=== PATIENT | female | born 1960 | race Caucasian/White ===

== ENCOUNTER 2020-06-19 08:35 | Day surgery (SDC) | payer MEDICARE, MEDICAID ==
--- NOTE | 2020-06-18 15:29 | NUR ---
ATTEMPTED TO CONFIRM PT APPT FOR TOMORROW. VOICEMAIL WAS NOT PT NAME, DID NOT LEAVE MESSAGE.
[~2020-06-19] VITALS: Ht 162.6 cm; Wt 51.8 kg
--- NOTE | ~2020-06-19 | HEMODYNAMI ---
PATIENT:LAVELL WALL MEDICAL RECORD: [id number] : 58 LOCATION:[facility] ADMISSION DATE: 06/19/20 Generatedon:113:55 Patient name: LAVELL WALL Patient #: [id number] SSN: : 1960 Date of study: 06/19/2020 Page: Of Hemodynamic Procedure Report Patient Data Patient Demographics Procedure consent was obtained First Name: LAVELL Gender: Female Last Name: MAE : 1960 Patient #: [id number] Age: 59 year(s) Race: Unknown Additional ID: [id number] Contact details [address]: [address] [place] [address] State: [place] City: [place] Zip code: [address] Past Medical History Allergies Allergen Reaction Date Comments Reported Morphine 06/19/2020 Erythromycin 06/19/2020 Admission Admission Data Admission Date: 06/19/2020 Admission Time: 8:35 Procedure Procedure Types Cath Procedure Peripheral Cath Diagnostic Procedure Abd/Extremity Extremities Bilat Lower Extremity Procedure Description Procedure Date Procedure Date: 06/19/2020 Procedure Start Time: 11:48 Procedure Staff Name Function Nelida Maurice RT Perioperative Manager Brooks Jane RT Scrub Дмитрий Tracey MD Additional personnel Gigi Romero MD Performing Physician Fidelia Caba RN Nurse Serena Cabrera RN Nurse Procedure Data Cath Procedure Fluoroscopy Diagnostic fluoroscopy Total fluoroscopy Time: 21 time: 21 min min Diagnostic fluoroscopy Total fluoroscopy dose: 251 dose: 251 mGy mGy Contrast Material Contrast Material Type Amount (ml) Isovue 300 160 Entry Location Entry Primary Successful Side Size Upsize Upsize Entry Closure Succes sful Closure Location (Fr) 1 (Fr) 2 (Fr) Remarks Device Remarks Femoral Exoseal artery Procedure Medications Medication Administration Route Dosage Heparin Flush Bag added to field 3 bags (1000units/500ml NS) Lidocaine 1% added to field 20 Refer to Anesthesia Notes for Sedation Medications Heparin Bolus I.V. 5000 units Radial Cocktail I.A. 1 syringe (Verapamil 2mg/Nitro 400mcg/Heparin 1500units) Nitroglycerin IC/IA I.A. 300 mcg Nitroglycerin IC/IA I.A. 300 mcg Heparin Bolus I.V. 1000 units Nitroglycerin IC/IA I.A. 300 mcg Hemodynamics Rest Pre Cath Intra NCS Post Cath Medications Time Medication Route Dose Verified Delivered Reason Notes Ef fectiveness by by 11:45:08 Heparin Flush added 3 bags Gigi Gigi used for Bag to Heather Romero MD procedure (1000units/500ml field BERTRAND NS) 11:45:21 Lidocaine 1% added 20ml Gigi Yu for local to vial Heather Romero MD anesthetic field BERTRAND 11:45:32 Refer to Gigi Yu Anesthesia Notes Heather Romero MD for Sedation MD Medications 12:07:08 Heparin Bolus I.V. 5000 Gigi Mistry Per units Rosales Romero RN physician 12:36:42 Radial Cocktail I.A. 1 Gigi Yu (Verapamil syringe Heather Romero MD 2mg/Nitro 400mcg/Hepari 12:50:36 Nitroglycerin I.A. 300 mcg Gigi Yu IC/IA Heather Romero MD MD 13:15:18 Nitroglycerin I.A. 300 mcg Gigi Yu used for IC/IA Heather Romero MD procedure 13:25:15 Heparin Bolus I.V. 1000 Gigi Yu Per units Heather Romero MD physician 13:37:06 Nitroglycerin I.A. 300 mcg Gigi Yu used for IC/IA Heather Romero MD procedure Procedure Log Time Note 11:10:18 Time tracking: Regular hours (M-F 7:00 - 5:00) 11:11:14 Plan of Care:Hemodynamics will remain stable., Cardiac rhythm will remain stable., Comfort level will be maintained., Respiratory function will remain adequate., Patient/ family verbilizes understanding of procedure., Procedure tolerated without complication., Recovers from procedure without complications.. 11:11:20 Patient received from Outpatients to IR Alert and oriented. Tansferred to table in Supine position. 11:11:23 Signed procedure consent form obtained from patient. 11:11:25 - 11:11:31 H&P Date Dictated: 06/19/2020 Within 30 days and on chart., H&P Addendum completed by physician on day of procedure. (MUST COMPLETE FOR ALL OUTPATIENTS). 11:11:33 Pre-procedure instructions explained to patient. 11:11:34 Pre-op teaching completed and patient verbalized understanding. 11:11:42 Family unavailable. 11:11:44 Patient NPO since Midnight. 11:12:37 Patient allergic to Morphine 11:12:45 Patient allergic to Erythromycin 11:13:42 Is the patient allergic to Iodine/contrast media? No. 11:13:45 Is patient on blood thinner?No 11:13:55 Patient diabetic? No. 11:13:59 - 11:14:00 ----Pre-sedation anethsthesia assessment.----see anesthesia notes for monitoring of patient during procedure 11:14:33 Use device set IR Diagnostic 11:15:36 Micropuncture VSI 4FR kit opened to sterile field. 11:15:37 DOUBLE ENDED GUIEDWIRE DOC 145CM (U67339) opened to sterile field. 11:15:38 TUBING Contrast Injection High Pressure (AMX107U) opened to sterile field. 11:15:39 SHEATH 5FR [place] (QIT874) opened to sterile field. 11:15:40 PEREIRA 260 wire (R91438) opened to sterile field. 11:15:41 Tegaderm 4 x 4 (1626W) opened to sterile field. 11:15:43 Sterile Angiographic Pack opened to sterile field. 11:15:44 Bag Decanter () opened to sterile field. 11:15:45 ACIST Manifold (21862) opened to sterile field. 11:15:46 ACIST Syringe (84404) opened to sterile field. 11:15:46 ACIST Hand Control (47449) opened to sterile field. 11:15:57 - 11:16:03 Pre procedure: right dorsailis pedis pulse Doppler 11:16:06 Pre procedure: left dorsailis pedis pulse Doppler 11:16:11 Pre procedure: right posterior tibial pulse Doppler 11:16:22 Pre procedure: left posterior tibial pulse Doppler 11:16:56 Right groin area was prepped with chlora-prep and draped in sterile fashion 11:17:02 Alarms reviewed by Layton Mulligan 11:17:08 - 11:17:33 2) 60-89 Mildly reduced kidney function, and other findings (as for stage 1) point to kidney disease. 11:38:50 Angiodynamics Omniflush 5Fr 65cm ([id number]) opened to sterile field. 11:38:52 GLIDE WIRE ANGLE 260cm (YO3700) opened to sterile field. 11:38:52 CXI SUPPORT .035 135 CM STR catheter (J76763) opened to sterile field. 11:38:53 GLIDE CATHETER 5FR ANGLED 65cm (CG507) opened to sterile field. 11:38:55 - 11:39:01 Fire Safety Assessment: A--An alcohol-based skin anteseptic being used preoperatively., C--Open oxygen or nitrous oxide is being used. 11:45:08 Heparin Flush Bag (1000units/500ml NS) 3 bags added to field was administered by Gigi Romero MD; used for procedure; Verbal order read back and verified. 11:45:21 Lidocaine 1% 20ml vial added to field was administered by Gigi Romero MD; for local anesthetic; Verbal order read back and verified. 11:45:32 Refer to Anesthesia Notes for Sedation Medications was administered by Gigi Romero MD; ; Verbal order read back and verified. 11:47:21 Physician arrived 11:47:22 Final Timeout: patient, procedure, and site verified with staff and physician. All members of the team are in agreement. 11:47:22 --------ALL STOP TIME OUT------ 11:48:03 Procedure started. 11:48:04 Full Disclosure recording started 11:48:08 Local anesthetic to right femoral artery with Lidocaine 1% by Gigi Romero MD.INITIAL ACCESS ONLY 11:49:12 AMPLATZ Super Stiff 75cm wire ([id number]) opened to sterile field. 12:02:58 SHEATH DESTINATION 6FR X 65CM (RSP01) opened to sterile field. 12:07:08 Heparin Bolus 5000 units I.V. was administered by Fidelia Caba RN; Per physician; Verbal order read back and verified. 12:23:14 GLIDE CATHETER 5FR STRAIGHT 100cm (CG506) opened to sterile field. 12:23:22 Tegaderm 6 x 8 (1628) opened to sterile field. 12:23:24 Tegaderm 6 x 8 (1628) opened to sterile field. 12:24:27 GUIDEWIRE V-18 CONTROL ([id number]) opened to sterile field. 12:36:42 Radial Cocktail (Verapamil 2mg/Nitro 400mcg/Heparin 1500units) 1 syring e I.A. was administered by Gigi Romero MD; ; Verbal order read back and verified. 12:42:18 CHOICE PT Extra Support J 300cm guide wire ([id number]) opened to steril e field. 12:43:24 INFLATOR BasixTOUCH (VR0205) opened to sterile field. 12:45:10 Inflate balloon Inflation number: 1 A NANOCROSS ELITE 3 X 100 ([id number]) was prepped and advanced across the Undefined1 , then inflated . 12:46:33 SHEATH 6FR Slender (57-6557) opened to sterile field. 12:50:36 Nitroglycerin IC/IA 300 mcg I.A. was administered by Gigi Romero MD; ; Verbal order read back and verified. 12:51:48 ROADRUNNER .035 260 glide wire (E81904) opened to sterile field. 13:00:05 Hawkone Medium Atherectomy System (H1-M) opened to sterile field. 13:13:15 Inflate balloon Inflation number: 1 A CHOCOLATE 4.0 x 40 x 135 balloon ([id number]) was prepped and advanced across the Undefined2 , then inflated . 13:15:18 Nitroglycerin IC/IA 300 mcg I.A. was administered by Gigi Romero MD; used for procedure; Verbal order read back and verified. 13:25:15 Heparin Bolus 1000 units I.V. was administered by Gigi Romero MD; Per physician; Verbal order read back and verified. 13:26:24 Inflate balloon Inflation number: 1 A NANOCROSS ELITE 2.5X80 ([id number]) was prepped and advanced across the Undefined3 , then inflated . 13:35:04 SHEATH 6FR [place] (DQY162) opened to sterile field. 13:37:06 Nitroglycerin IC/IA 300 mcg I.A. was administered by Gigi Romero MD; used for procedure; Verbal order read back and verified. 13:40:10 EXOSEAL 6Fr (EX600) opened to sterile field. 13:41:29 Sheath removed intact; hemostasis achieved with Exoseal to the Femoral artery. 13:41:29 A sheath was inserted into the Femoral artery 13:49:33 Procedure ended.(Physican Out) 13:52:08 Procedure and supply charges have been captured, reviewed, submitted an d are correct. 13:52:33 Report given to PCU. 13:52:40 Patient transfered to PCU with Stretcher. 13:53:10 Full Disclosure recording stopped 13:54:34 Fluoroscopy time 21.00 minutes. 13:54:39 Fluoroscopy dose: 251 mGy 13:54:39 Flurop Dose total: 251 13:54:58 Contrast amount:Isovue 300 160ml. Intervention Summary Intervention Notes Time ActionType Lesion and Equipment Used Action# Pressure Duration Attributes 12:45:10 Inflate Undefined1 NANOCROSS ELITE 3 1 0 00:00 balloon X 120 ([id number]) 13:13:15 Inflate Undefined2 CHOCOLATE 4.0 x 1 0 00:00 balloon 40 x 135 balloon ([id number]) 13:26:24 Inflate Undefined3 NANOCROSS ELITE 1 0 00:00 balloon 2.5X40 ([id number]) Device Usage Item Name Manufacture Quantity Catalog Number [facility] Minimal Lot# / Charge Number Stock Stock Serial# Code Micropuncture VSI VSI VASCULAR 1 7266V 149495 866206 5 4FR kit SOLUTIONS DOUBLE ENDED [employer] 1 Z55901 779352 054343 1 GUIEDWIRE DOC 145CM (A04314) TUBING Contrast [facility] 1 IXN735G 473601 990988 335710 5 Injection High Pressure (OXQ522K) SHEATH 5FR Terumo 1 QLX499 540838 960139 752066 5 [place] (TIO698) PEREIRA 260 wire [employer] 1 U09722 681347 206568 803586 5 [id number] (R36108) Tegaderm 4 x 4 3M 1 1626W 907976 346887 227584 5 (1626W) Sterile Cardinal 1 [id number] 686544 951983 5 Angiographic Pack Health Bag Decanter Microtek 1 2001S 520387 12032 573079 5 (2001S) Medical Inc. ACIST Manifold [employer]ist [employer] 1 26352 644122 306497 610126 5 (57915) Systems Inc ACIST Hand [employer]ist [employer] 1 78409 801640 337185 286624 5 Control (68351) Systems Inc ACIST Syringe [employer] 1 90524 773342 704161 512520 20 (55506) Systems Inc Angiodynamics Angiodynamics 1 94255464 332976 793032 957655 5 Omniflush 5Fr 65cm (82664204) CXI SUPPORT .035 [employer] 1 O75726 688167 750911 989705 5 [id number] 135 CM STR catheter (D94870) GLIDE WIRE ANGLE Terumo 1 IB6984 663247 194522 445376 5 260cm (KE9165) GLIDE CATHETER Terumo 1 CG507 267347 947442 5 5FR ANGLED 65cm (CG507) AMPLATZ Super [place] 1 [id number] 814735 045104 173358 5 Stiff 75cm wire Scientific ([id number]) SHEATH Terumo 1 RSP01 568508 95415 501991 1 DESTINATION 6FR X 65CM (RSP01) GLIDE CATHETER Terumo 1 CG506 396556 81102 210031 4 5FR STRAIGHT 100cm (CG506) Tegaderm 6 x 8 3M 2 1628 409738 476333 5 (1628) GUIDEWIRE V-18 [place] 1 960810 822889 747086 1 CONTROL Scientific ([id number]) CHOICE PT Extra [place] 1 [id number] 91306820181004 095730 5 Support J 300cm Scientific guide wire (9600854M4) INFLATOR Contour [employer] 1 WU5957 597700 486251 449477 5 BasixTOUCH (KY3507) NANOCROSS ELITE 3 Medtronic 1 [id number] 613371 959282 035754 1 X 120 ([id number]) SHEATH 6FR Terumo 1 [id number] 356192 459284 495402 5 Slender (80-1060) ROADRUNNER .035 [employer] 1 J89532 253542 022990 623243 5 260 glide wire (T01866) Hawkone Medium Medtronic 1 H1-M 340755 318151 30 5 Atherectomy System (H1-M) CHOCOLATE 4.0 x Medtronic 1 [id number] 769347 70573 875357 5 40 x 135 balloon O ([id number]) TW NANOCROSS ELITE Medtronic 1 [id number] 685642 337137 776403 1 2.5X40 ([id number]) SHEATH 6FR Terumo 1 QSL134 013792 344502 364594 40 [place] (YJB878) EXOSEAL 6Fr Cardinal 1 EX600 321833 133626 506717 10 16051817 (EX600) Health Signature Audit [place] Stage Time Signature Unsigned Intra-Procedure 06/19/2020 Nelida Almazanield RT 1:52:58 PM RT(R) (R) (CV) 06/19/2020 1:54:22 PM Intra-Procedure 06/19/2020 Nelida Maurice 1:55:33 PM RT(R) [facility] [address] [place] [address]
[2020-06-19 09:19] LABS: ANION GAP 13.7 mmol/L (8-16); CALCIUM 9.4 mg/dL (8.5-10.1); CARBON DIOXIDE 24.1 mmol/L (21.0-32.0); CREATININE - SERUM 0.9 mg/dL (0.6-1.3); POTASSIUM - SERUM 3.8 mmol/L (3.5-5.1)
[2020-06-19 09:26] LABS: BASOPHILS 1.2 % (0-2); HEMATOCRIT 30.4 % (36.0-48.0); HEMOGLOBIN 8.6 g/dL (12-16); LYMPHOCYTE ABS# 1.09 10x3/uL (1.18-3.74); LYMPHOCYTES 32.7 % (15-50); MCH 24.1 pg (26.0-34.0); MCHC 28.3 g/dL (31.0-37.0); MCV 85.2 fL (80.0-100.0); MONOCYTES 8.4 % (2-11); NEUTROPHIL ABS# 1.82 10x3/uL (1.56-6.13); NEUTROPHILS 54.7 % (40-80); PLATELET COUNT 169 10x3/uL (130-400); RBC 3.57 10x6/uL (4.00-5.40); RDW 19.7 % (11.5-14.5); WBC 3.3 10x3/uL (4.8-10.8)
[2020-06-19 09:37] LABS: APTT 26.8 SECONDS (22.8-39.4); INR 1.04 (0.85-1.17); PROTIME 12.6 SECONDS (11.6-15.0)
[2020-06-19] MEDS ORDERED: CARAFATE1 G PO (09:58)
[2020-06-19] MEDS ORDERED: NEURONTIN800 MG (09:59)
[2020-06-19] MEDS ORDERED: OMEPRAZOLE20 M1 PO (09:59)
[2020-06-19] MEDS ORDERED: REMERON30 MG PO (10:00)
[2020-06-19] MEDS ORDERED: AMBIEN10 MG PO (10:01)
[2020-06-19] MEDS ORDERED: TOPAMAX200 MG PO (10:01)
[2020-06-19] MEDS ORDERED: LATUDA80 MG PO (10:02)
[2020-06-19] MEDS ORDERED: ELIQUIS5 MG PO (10:02)
[2020-06-19] MEDS ORDERED: BACLOFEN10 MG (10:03)
[2020-06-19] MEDS ORDERED: PAXIL20 MG PO (10:04)
[2020-06-19] MEDS ORDERED: DEPAKOTE250 MG PO (10:04)
[2020-06-19] MEDS ORDERED: BREO ELLIPTA 11 EACH INH (10:06)
[2020-06-19] MEDS ORDERED: UBRELVY PO (10:06)
[2020-06-19] MEDS ORDERED: ALBUTEROL SULF8.5 GM (10:07)
[2020-06-19 10:25] VITALS: BP 115/67; Ht 162.6 cm; Wt 51.8 kg
--- NOTE | 2020-06-19 13:12 | NUR ---
1030 PT HAS A POSITIVE LIFETIME SUICIDE SCREENING. PT STATES SUICIDE ATTEMPT WAS YEARS AGO AND THAT SHE RECEIVED PSYCHIATRIC HELP. PT REFUSES TO MEET WITH [facility] NURSE AT THIS TIME.
--- NOTE | 2020-06-19 18:24 | NUR ---
1720 ASSISTED UP TO BATHROOM AFTER SITTING ON SIDE OF BED. VOIDED X1. SITE TO GROIN AND LT LL CDI. IV REMOVED INSTRUCTIONS GIVEN. ASSISTED GETTING DRESSED
== END 2020-06-19 17:40 | disposition home or self-care (01) ==
LOC: D.SP 08:35 → D.RAD 11:00 → D.SP 11:00
PROVIDERS: ATTEND General Practice
DX: I70.213 Atherosclerosis of native arteries of extremities with intermittent claudication, bilateral legs (principal)

== ENCOUNTER 2020-07-17 12:16 | Day surgery (SDC) | payer MEDICARE ==
--- NOTE | 2020-07-16 14:30 | NUR ---
ATTEMPTED TO CONFIRM PT APPT FOR 07/17 - VOICEMAIL DID NOT SPECIFY PT NAME, DID NOT LEAVE VOICEMAIL
[~2020-07-17] VITALS: Ht 162.6 cm; Wt 52.7 kg
--- NOTE | ~2020-07-17 | HEMODYNAMI ---
PATIENT:LAVELL WALL MEDICAL RECORD: [id number] : 58 LOCATION:[facility] ADMISSION DATE: 07/17/20 Generatedon:116:39 Patient name: LAVELL WALL Patient #: [id number] SSN: : 1960 Date of study: 07/17/2020 Page: Of Hemodynamic Procedure Report Patient Data Patient Demographics Procedure consent was obtained First Name: LAVELL Gender: Female Last Name: MAE : 1960 [facility] Initial: MASOOD Age: 59 year(s) Patient #: [id number] Race: Unknown Additional ID: [id number] Contact details Address: [address] [place] [address] State: [place] City: [place] Zip code: [address] Past Medical History Allergies Allergen Reaction Date Comments Reported Morphine 06/19/2020 Erythromycin 06/19/2020 Morphine 07/17/2020 Erythromycin 07/17/2020 Admission Admission Data Admission Date: 07/17/2020 Admission Time: 12:16 Height (in.): 64 BSA: 1.55 (m2) Height (cm.): 162.56 BMI: 19.91 (kg/m2) Weight (lbs.): 116 Weight (kg.): 52.62 Procedure Procedure Types Cath Procedure Peripheral Cath Diagnostic Procedure Abd/Extremity Extremities Bilat Lower Extremity Procedure Description Procedure Date Procedure Date: 07/17/2020 Procedure Start Time: 13:56 Procedure Staff Name Function Gigi Romero MD Performing Physician Nelida Maurice RT Card Grader Timothy Casillas CRNA Additional personnel Fidelia Caba RN Nurse Serena Cabrera RN Nurse VONDA GARDUNO RT Scrub Procedure Data Cath Procedure Fluoroscopy Diagnostic fluoroscopy Total fluoroscopy Time: time: 26.1 min 26.1 min Diagnostic fluoroscopy Total fluoroscopy dose: 382 dose: 382 mGy mGy Contrast Material Contrast Material Type Amount (ml) Isovue 300 120 Procedure Medications Medication Administration Route Dosage Heparin Flush Bag added to field 2 bags (1000units/500ml NS) unlisted medication added to field 20 Heparin Bolus I.V. 5000 units Heparin Bolus I.V. 1000 units Radial Cocktail added to field 1 syringe (Verapamil 2mg/Nitro 400mcg/Heparin 1500units) Hemodynamics Rest BSA: 1.55 (m2) O2 Consumption: Estimated: 210.8 (ml/min) O2 Consumption indexed: Estimated:136 (ml/min/m) Pre Cath Intra NCS Post Cath Medications Time Medication Route Dose Verified Delivered Reason Notes Eff ectiveness by by 13:36:06 Heparin Flush added 2 bags Gigi Yu used for Bag to Heather Romero MD procedure (1000units/500ml field NS) 13:36:29 lido added 20ml Gigi Yu used for to vial Heather Romero MD procedure field 14:30:07 Heparin Bolus I.V. 5000 Gigi Aguirre used for units Sonja Romero procedure [employer] P[employer] 15:35:00 Heparin Bolus I.V. 1000 Gigi Aguirre used for units Sonja Romero procedure [employer] PERSON 15:43:55 Radial Cocktail added 1 Gigi Yu used for (Verapamil to syringe Heather Romero MD procedure 2mg/Nitro field BERTRAND 400mcg/Heparin 1500units) Procedure Log Time Note 13:14:21 Patient Height : 64 inches 13:14:24 Patient Weight : 116 lbs 13:17:20 Use device set IR Diagnostic 13:17:22 Tegaderm 4 x 4 (1626W) opened to sterile field. 13:17:24 Sterile Angiographic Pack opened to sterile field. 13:17:25 Bag Decanter (2002S) opened to sterile field. 13:17:26 ACIST Manifold (31276) opened to sterile field. 13:17:27 ACIST Hand Control (44092) opened to sterile field. 13:17:28 ACIST Syringe (94173) opened to sterile field. 13:17:28 GLIDE WIRE ANGLE 260cm (TY3553) opened to sterile field. 13:17:30 DOUBLE ENDED GUIEDWIRE DOC 145CM (M10435) opened to sterile field. 13:17:31 TUBING Contrast Injection High Pressure (EYU316I) opened to sterile field. 13:17:32 SHEATH 5FR Cades (POE277) opened to sterile field. 13:17:33 PEREIRA 260 wire (Z96981) opened to sterile field. 13:17:34 Micropuncture VSI 4FR kit opened to sterile field. 13:17:47 - 13:17:51 Time tracking: Regular hours (M-F 7:00 - 5:00) 13:18:22 Plan of Care:Hemodynamics will remain stable., Cardiac rhythm will remain stable., Comfort level will be maintained., Respiratory function will remain adequate., Patient/ family verbilizes understanding of procedure., Procedure tolerated without complication., Recovers from procedure without complications.. 13:18:50 Patient received from Outpatients to IR Alert and oriented. Tansferred to table in Supine position. 13:18:54 Signed procedure consent form obtained from patient. 13:19:06 H&P Date Dictated: 07/17/2020 Within 30 days and on chart., H&P Addendum completed by physician on day of procedure. (MUST COMPLETE FOR ALL OUTPATIENTS). 13:19:11 Pre-procedure instructions explained to patient. 13:19:12 Pre-op teaching completed and patient verbalized understanding. 13:19:15 Family in patients room. 13:19:17 Patient NPO since Midnight. 13:19:32 Patient allergic to Morphine 13:19:48 Patient allergic to Erythromycin 13:19:53 Is the patient allergic to Iodine/contrast media? No. 13:19:57 Is patient on blood thinner?No 13:20:00 Patient diabetic? No. 13:20:02 - 13:20:04 ----Pre-sedation anethsthesia assessment.----see anesthesia notes for monitoring of patient during procedure 13:20:53 2) 60-89 Mildly reduced kidney function, and other findings (as for stage 1) point to kidney disease. 13:20:59 Fire Safety Assessment: A--An alcohol-based skin anteseptic being used preoperatively., C--Open oxygen or nitrous oxide is being used. 13:21:04 Left groin area was prepped with chlora-prep and draped in sterile fashion 13:21:07 Alarms reviewed by Layton Mulligan 13:21:10 - 13:36:06 Heparin Flush Bag (1000units/500ml NS) 2 bags added to field was administered by Gigi Romero MD; used for procedure; Verbal order read back and verified. 13:36:29 lido 20ml vial added to field was administered by Gigi Romero MD; used for procedure; Verbal order read back and verified. 13:55:17 Physician arrived 13:55:18 --------ALL STOP TIME OUT------ 13:55:19 Final Timeout: patient, procedure, and site verified with staff and physician. All members of the team are in agreement. 13:56:04 Procedure started. 13:56:04 Full Disclosure recording started 13:56:12 Local anesthetic to left femerol artery with Lidocaine 1% by Gigi Romero MD.INITIAL ACCESS ONLY 13:56:14 Arterial access obtained using ultrasound guidance. 14:01:01 GLIDE CATHETER 5FR ANGLED 65cm (CG507) opened to sterile field. 14:05:29 Angiodynamics Omniflush 5Fr 65cm (80802160) opened to sterile field. 14:08:44 TORQUE DEVICE PLASTIC .038 ( TD01) opened to sterile field. 14:17:33 SHEATH DESTINATION 6FR X 65CM (RSP01) opened to sterile field. 14:17:49 CXI SUPPORT .035 135 CM STR catheter (B52475) opened to sterile field. 14:21:40 GLIDE WIRE Super Stiff Angled 260cm (ZV3279) opened to sterile field. 14:25:00 GLIDE CATHETER 5FR ANGLED 100cm (CG508) opened to sterile field. 14:27:54 ROADRUNNER .035 260 glide wire (K90132) opened to sterile field. 14:30:07 Heparin Bolus 5000 units I.V. was administered by Timothy Casillas CRNA; used for procedure; Verbal order read back and verified. 14:33:59 Trailblazer 0.035 90cm catheter (ASC-035-090) opened to sterile field. 14:49:25 SHEATH 6FR Slender (80-1060) opened to sterile field. 14:57:44 NITINOL .014 300cm wire (S271943) opened to sterile field. 15:22:56 Cook RAABE 6FR. 90cm guide sheath opened to sterile field. 15:35:00 Heparin Bolus 1000 units I.V. was administered by Timothy Casillas CRNA; used for procedure; Verbal order read back and verified. 15:36:43 GUIDEWIRE V-18 CONTROL ([id number]) opened to sterile field. 15:42:00 CHOICE PT Extra Support J 300cm guide wire ([id number]) opened to steril e field. 15:43:55 Radial Cocktail (Verapamil 2mg/Nitro 400mcg/Heparin 1500units) 1 syring e added to field was administered by Gigi Romero MD; used for procedure; Verbal order read back and verified. 15:47:19 Hawkone Medium Atherectomy System (H1-M) opened to sterile field. 16:08:29 Inflate balloon Inflation number: 1 A CHOCOLATE 3.5 x 120 x 135 balloon ([id number]) was prepped and advanced across the Undefined1 , then inflated . 16:09:38 INFLATOR BasixTOUCH (WQ5763) opened to sterile field. 16:18:14 Inflate balloon Inflation number: 2 A CHOCOLATE BALLOON 4 X 120 ([id number]) was prepped and advanced across the Undefined1 , then inflated . 16:22:28 SHEATH 6FR Cades (PIV095) opened to sterile field. 16:25:32 EXOSEAL 6Fr (EX600) opened to sterile field. 16:30:46 Procedure ended.(Physican Out) 16:33:24 Fluoroscopy time 26.10 minutes. 16:33:31 Fluoroscopy dose: 382 mGy 16:33:31 Flurop Dose total: 382 16:33:37 Contrast amount:Isovue 300 120ml. 16:33:41 Procedure and supply charges have been captured, reviewed, submitted an d are correct. 16:39:12 Report given to Recovery Room. Intervention Summary Intervention Notes Time ActionType Lesion and Equipment Used Action# Pressure Duratio n Attributes 16:08:29 Inflate Undefined1 CHOCOLATE 3.5 x 120 1 0 00:00 balloon x 135 balloon ([id number]) 16:18:14 Inflate Undefined1 CHOCOLATE BALLOON 4 2 0 00:00 balloon X 120 ([id number]) Device Usage Item Name Manufacture Quantity Catalog Number Hospital Part Current Minimal Lot# / Charge Number Stock Stock Serial# Code Tegaderm 4 x 4 3M 1 1626W [id number] [id number] 5 (1626W) Sterile Angiographic Cardinal 1 [id number] 651663 729002 5 Pack Health Bag Decanter (2001S) Microtek 1 2001S 808174 16922 035074 5 Medical Inc. ACIST Manifold Acist Medical 1 81721 059157 453854 690168 5 (71329) Systems Inc ACIST Hand Control Acist Medical 1 99926 430424 995253 482767 5 (99921) Systems Inc ACIST Syringe [employer]ist Medical 1 17295 601152 769897 628371 20 (40139) Systems Inc GLIDE WIRE ANGLE Terumo 1 QK4993 566487 362152 134750 5 260cm (YF9129) DOUBLE ENDED [facility] 1 E86983 630736 317018 1 GUIEDWIRE DOC 145CM (X18119) TUBING Contrast [facility] Medical 1 MLF770O 715658 370430 484725 5 Injection High Pressure (XCS283H) SHEATH 5FR Cades Terumo 1 WKD459 520609 334230 615060 5 (YPP748) PEREIRA 260 wire [facility] 1 L79717 972514 688171 636425 5 (E69593) Micropuncture VSI VSI VASCULAR 1 7266V 436810 308025 5 4FR kit SOLUTIONS GLIDE CATHETER 5FR Terumo 1 CG507 785040 495813 5 ANGLED 65cm (CG507) Angiodynamics Angiodynamics 1 02712561 950533 463159 042936 5 Omniflush 5Fr 65cm (69116321) TORQUE DEVICE [place] 1 TD01 981300 409127 802026 5 PLASTIC .038 ( TD01) Scientific SHEATH DESTINATION Terumo 1 RSP01 292888 01670 046210 1 6FR X 65CM (RSP01) CXI SUPPORT .035 135 Cook Medical 1 K46932 416058 941401 959589 5 CM STR catheter (T08125) GLIDE WIRE Super Terumo 1 WU0136 244892 155782 290410 5 Stiff Angled 260cm (OQ7763) GLIDE CATHETER 5FR Terumo 1 CG508 623258 32663 627028 4 ANGLED 100cm (CG508) ROADRUNNER .035 260 [employer] 1 O87623 907095 320393 967868 5 glide wire (Q54889) Trailblazer 0.035 Medtronic 1 ASC-035-090 438010 4085092 199436 5 90cm catheter (ASC-035-090) SHEATH 6FR Slender Terumo 1 [id number] 403265 629716 189803 5 (80-1060) NITINOL .014 300cm Medtronic 1 H451757 924945 891222 5 wire (H212565) Cook RAABE 6FR. 90cm [employer] 1 U86752 711238 965142 5 guide sheath GUIDEWIRE V-18 [place] 1 353919 917340 995875 1 CONTROL ([id number]) Scientific CHOICE PT Extra [place] 1 [id number] 31096320181004 450782 5 Support J 300cm Scientific guide wire ([id number]) Hawkone Medium Medtronic 1 H1-M 563400 13134916 5 Atherectomy System (H1-M) CHOCOLATE 3.5 x 120 Medtronic 1 [id number] O 404126 472332 838083 5 x 135 balloon TW ([id number]) INFLATOR BasixTOUCH [facility] 1 FH8075 418319 848231 636847 5 (HC4014) CHOCOLATE BALLOON 4 Medtronic 1 [id number] 440893 191086 1 X 120 TW ([id number]) SHEATH 6FR Cades Terumo 1 IVG370 855149 026521 175370 40 (ZOG607) EXOSEAL 6Fr (EX600) Cardinal 1 EX600 229315 035184 808817 10 Health Signature Audit [place] Stage Time Signature Unsigned Intra-Procedure 07/17/2020 Nelida Maurice 4:39:39 PM RT(R) [facility] [address] [place] [address]
[2020-07-17 11:01] LABS: INR 1.03 (0.85-1.17); PROTIME 12.5 SECONDS (11.6-15.0)
[2020-07-17 11:02] LABS: CALC OSMOLALITY 293 mosm/kg (275-300); CARBON DIOXIDE 21.1 mmol/L (21.0-32.0); CHLORIDE - SERUM 114 mmol/L (98-107); CREATININE - SERUM 0.8 mg/dL (0.6-1.3); GLUCOSE 95 mg/dL (74-106); POTASSIUM - SERUM 3.8 mmol/L (3.5-5.1); SODIUM 147 mmol/L (136-145); UREA NITROGEN 19 mg/dL (7-18); eGFR NON AFRICAN AMERICAN 77 mL/min (90-120)
[~2020-07-17 12:16] MED LIST: ALBUTEROL SULF8.5 GM; AMBIEN10 MG PO; BACLOFEN10 MG; BACLOFEN10 MG PO; BREO ELLIPTA 11 EACH INH; CARAFATE1 G PO; DEPAKOTE250 MG PO; ELIQUIS5 MG PO; LATUDA80 MG PO; NEURONTIN800 MG; NEURONTIN800 MG PO; OMEPRAZOLE20 M1; OMEPRAZOLE20 M1 PO; PAXIL20 MG PO; REMERON30 MG PO; TOPAMAX200 MG PO; UBRELVY PO
[2020-07-17 12:25] LABS: BASOPHILS 0.6 % (0-2); EOSINOPHILS 5.1 % (0-7); HEMATOCRIT 29.7 % (36.0-48.0); HEMOGLOBIN 8.3 g/dL (12-16); IMMATURE GRANULOCYTES 0.3 % (0-5); LYMPHOCYTE ABS# 1.27 10x3/uL (1.18-3.74); LYMPHOCYTES 37.9 % (15-50); MCH 23.6 pg (26.0-34.0); MCHC 27.9 g/dL (31.0-37.0); MCV 84.4 fL (80.0-100.0); MONOCYTES 9.6 % (2-11); NEUTROPHIL ABS# 1.56 10x3/uL (1.56-6.13); NEUTROPHILS 46.5 % (40-80); PLATELET COUNT 166 10x3/uL (130-400); RBC 3.52 10x6/uL (4.00-5.40); RDW 19.7 % (11.5-14.5); WBC 3.4 10x3/uL (4.8-10.8)
[2020-07-17 12:28] VITALS: BP 115/52; Ht 162.6 cm; Wt 52.7 kg
--- NOTE | 2020-07-17 18:05 | NUR ---
1750 RETURNED TO 2506 FROM PACU, A/A, RIGHT FOOT DOPPLER PULSES, SISTER AT SIDE. 1800 TIME FRAME FOR THIS POST STAY GIVEN, PT. KNOWS TO STAY BEDREST WITH LEGS STRAIGHT, GROIN SITE CDI, ICE CAP APPLIED, RT ANKLE DRESSING CDI. FINGER FOOD DIET ORDERED, PT. DRANK 240CC WATER.
--- NOTE | 2020-07-17 18:23 | NUR ---
1814 DR. BEYER ROUNDS ON PT, DOPLER PULSES AND TOUCH PULSES PRESENT. GROIN DRESSING AND RT ANKLE DRESSING IS CDI, DR. BEYER GAVE INSTUCTIONS.
--- NOTE | 2020-07-17 18:41 | NUR ---
183 PT. ASKED TO GET UP TO THE BATHROOM, I EXPLAINED BEDREST AND BEDPAN UNTIL ABOUT 1930 IS THE ORDER. PLACED ON A BEDPAN, PT. STATES SHE HAS DIFFICULTIES VOIDING ON A BEDPAN.
--- NOTE | 2020-07-17 19:53 | NUR ---
1950 ASS POST PROCEDURE CHECKLIST FOR VITAL SIGN TRENDS.
== END 2020-07-17 19:53 | disposition home or self-care (01) ==
LOC: D.SP 12:16 → D.RAD 13:00 → D.SP 19:53
PROVIDERS: ATTEND General Practice
DX: I70.211 Atherosclerosis of native arteries of extremities with intermittent claudication, right leg (principal)